=== PATIENT | male | born 1990 | race Hispanic/Latino ===

== ENCOUNTER 2019-06-04 15:39 | Emergency (ER) | payer OTHER ==
[2019-06-04] MEDS ORDERED: TETANUS & DIPHTHERIA TOX,ADULT 0.5 ML VIAL ONE (15:50)
[2019-06-04] MEDS ORDERED: ONDANSETRON 4 MG/2 ML VIAL ONE (15:50)
[2019-06-04] MEDS ORDERED: MORPHINE 4 MG/ML SYR ONE ×2 (15:50→16:12)
[2019-06-04] MEDS ORDERED: NA CHLORIDE 0.9% 1,000 ML ONE (15:51)
[2019-06-04] MEDS ORDERED: CEFAZOLIN/SWI 1gm 1 GM/10 ML SYR ONE (15:51)
--- NOTE | 2019-06-04 15:58 | ER ---
Nurse's Notes [facility] Name: Chi Mullins Age: 28 yrs Sex: Male : 1990 Arrival Date: 06/04/2019 Time: 15:43 Bed 24 Private MD: Diagnosis: Complete traumatic amputation of left foot, level unspecified Presentation: 06/04 15:44 Presenting complaint: [facility] and he was sv trying to save it and it went over his right foot. Pt has a belt wrapped around his right leg, pt drove from [employer]. Transition of care: patient was not received from another setting of care. Complicating Factors: There are no complicating factors for this patient. Onset of symptoms was June 04, 2019. Risk Assessment: Do you want to hurt yourself or someone else? Patient reports no desire to harm self or others. Care prior to arrival: None. 15:44 Method Of Arrival: Wheelchair sv 15:44 Acuity: GEOFF 2 sv 15:52 Trauma event details: Injury occurred in the [facility], Injury occurred: at sv home. Injury occurred: June 04, 2019. 16:28 Initial Sepsis Screen: Does the patient meet any 2 criteria? No. Patient's initial mg2 sepsis screen is negative. Does the patient have a suspected source of infection? No. Patient's initial sepsis screen is negative. 16:29 Mechanism of Injury: Crush injury from director emergency. mg2 Trauma Activation: Alert Physician: ED Physician; Name: Dr Light; Notified At: 15:41; Arrived At: 15:43 Physician: General Surgeon; Name: ; Notified At: 15:41; Arrived At: Physician: Radiology; Name: ; Notified At: 15:41; Arrived At: Physician: Respiratory; Name: ; Notified At: 15:41; Arrived At: Physician: Lab; Name: ; Notified At: 15:41; Arrived At: Historical: - Allergies: 15:47 No Known Allergies; sv - PMHx: 15:47 None; sv - PSHx: 15:47 None; sv - Immunization history:: Last tetanus immunization: unknown. - Social history:: Smoking status: unknown. - Ebola Screening: : No symptoms or risks identified at this time. Screenin:22 Abuse screen: Denies threats or abuse. Denies injuries from another. Nutritional mg2 screening: No deficits noted. Tuberculosis screening: No symptoms or risk factors identified. 16:55 Fall Risk IV access (20 points). mg2 Primary Survey: 16:19 Uncontrolled hemorrhage is observed, assessment has been re-ordered to <C> ABC. A: The mg2 patient is alert. Airway: patent. Breathing/Chest: Respiratory pattern: regular, Respiratory effort: spontaneous, unlabored, Breath sounds: clear. Circulation: Skin color: pink. Disability Alert. Exposure/Environment: All clothing and personal items were removed. Forensic evidence collection is not deemed to be indicated at this time. Items placed in patient belonging bag. There is evidence of uncontrolled external hemorrhage. Provider notified immediately. Methods to control bleeding applied. 16:55 Reassessment Airway Airway Patent Breathing/Chest Respiratory pattern Regular mg2 Respiratory effort Spontaneous Unlabored Breath sounds Clear Chest inspection Symmetrical Circulation Color Crossnore Disability Alert. Secondary Survey: 16:21 HEENT: No deficits noted. Gastrointestinal: No deficits noted. : No deficits noted. mg2 Musculoskeletal: Circulation, motion, and sensation intact. Capillary refill < 3 seconds. Injury Description: Crush injury sustained to lateral side of left foot is macerated was sustained 30-60 minutes ago. Assessment: 15:41 Reassessment: Trauma alert called. sv 16:24 General: Appears in no apparent distress. comfortable, Behavior is calm, cooperative. mg2 Pain: Complains of pain in lateral side of left foot Pain does not radiate. Pain currently is 4 out of 10 on a pain scale. Quality of pain is described as aching, Pain began suddenly. Neuro: Level of Consciousness is awake, alert, obeys commands, Oriented to person, place, time, situation. Cardiovascular: Capillary refill < 3 seconds Patient's skin is warm and dry. Respiratory: Airway is patent Respiratory effort is even, unlabored, Respiratory pattern is regular, symmetrical. GI: No signs and/or symptoms were reported involving the gastrointestinal system. : No signs and/or symptoms were reported regarding the genitourinary system. EENT: No signs and/or symptoms were reported regarding the EENT system. Derm: Skin not intact Skin is pink, warm \T\ dry. normal. Musculoskeletal: Circulation, motion, and sensation intact. Capillary refill < 3 seconds. Injury Description: Crush injury sustained to lateral side of left foot. 16:54 Reassessment: report called to Shahida Shah RN of [facility] ED. mg2 16:56 Injury Description: Crush injury. mg2 Vital Signs: 15:47 BP 137 / 93; Pulse 127; Resp 16; Temp 99.2(O); Pulse Ox 97% ; Weight 81.65 kg; Height 5 sv ft. 6 in. (167.64 cm); Pain 10/10; 16:28 BP 123 / 86; Pulse 96; Resp 18; Pulse Ox 100% on R/A; mg2 16:57 BP 134 / 89; Pulse 98; Resp 18; Pulse Ox 100% on R/A; mg2 17:04 BP 134 / 93; Pulse 97; Resp 18; Pulse Ox 100% on R/A; mg2 17:33 BP 133 / 93; Pulse 98; Resp 18; Temp 99.8(O); Pulse Ox 100% on R/A; Pain 5/10; mg2 15:47 Body Mass Index 29.05 (81.65 kg, 167.64 cm) sv Josué Coma Score: 15:50 Eye Response: spontaneous(4). Verbal Response: oriented(5). Motor Response: obeys sv commands(6). Total: 15. 16:28 Eye Response: spontaneous(4). Verbal Response: oriented(5). Motor Response: obeys mg2 commands(6). Total: 15. 17:33 Eye Response: spontaneous(4). Verbal Response: oriented(5). Motor Response: obeys mg2 commands(6). Total: 15. Trauma Score (Adult): 15:50 Eye Response: spontaneous(1); Verbal Response: oriented(1); Motor Response: obeys sv commands(2); Systolic BP: > 89 mm Hg(4); Respiratory Rate: 10 to 29 per min(4); Josué Score: 15; Trauma Score: 12 16:28 Eye Response: spontaneous(1); Verbal Response: oriented(1); Motor Response: obeys mg2 commands(2); Systolic BP: > 89 mm Hg(4); Respiratory Rate: 10 to 29 per min(4); Josué Score: 15; Trauma Score: 12 17:33 Eye Response: spontaneous(1); Verbal Response: oriented(1); Motor Response: obeys mg2 commands(2); Systolic BP: > 89 mm Hg(4); Respiratory Rate: 10 to 29 per min(4); [place] Score: 15; Trauma Score: 12 ED Course: 15:43 Patient arrived in ED. as 15:46 Triage completed. sv 15:48 Blas Light MD is Attending Physician. kdr 15:48 Arm band placed on. sv 15:55 Sergio Medina RN is Primary Nurse. mg2 16:00 Inserted saline lock: 18 gauge in right antecubital area, using aseptic technique. mg2 Blood collected. Wound care: to crushed injury located on lateral side of left foot was cleaned with debrided using irrigated with normal saline, dressed with 4X4s, Pneumatic tourniquet applied. Thermoregulation: warm blanket given to patient. 16:10 Foot Left 3 View XRAY In Process Unspecified. EDMS 16:22 No provider procedures requiring assistance completed. Patient maintains SpO2 mg2 saturation greater than 95% on room air. 16:24 Patient has correct armband on for positive identification. mg2 17:34 Patient transferred, IV remains in place. mg2 17:35 Patient transferred, IV remains in place. mg2 Administered Medications: 15:56 Drug: Zofran 4 mg Route: IVP; Site: right antecubital; mg2 17:02 Follow up: Response: No adverse reaction; Marked relief of symptoms mg2 15:56 Drug: Tetanus-Diphtheria Toxoid Adult 0.5 ml {Wind Turbine Service Technician: LEHR. Exp: mg2 11/16/2020. Lot #: [id number]. } Route: IM; Site: right deltoid; 16:59 Follow up: Response: No adverse reaction mg2 15:57 Drug: morphine 4 mg Route: IVP; Site: right antecubital; mg2 17:03 Follow up: Response: No adverse reaction; Marked relief of symptoms mg2 15:57 Drug: NS 0.9% 1000 ml Route: IV; Rate: 1 bolus; Site: right antecubital; mg2 17:03 Follow up: Response: No adverse reaction; IV Status: Completed infusion; IV Intake: mg2 1000ml 15:58 Drug: Ancef 1 grams Route: IVPB; Site: right antecubital; mg2 17:03 Follow up: Response: No adverse reaction; IV Status: Completed infusion mg2 16:03 CANCELLED (Duplicate Order): Tetanus-Diphtheria Toxoid Adult 0.5 ml IM once mg2 16:21 Drug: morphine 4 mg Route: IVP; Site: right antecubital; mg2 16:59 Follow up: Response: No adverse reaction; Marked relief of symptoms mg2 16:39 Drug: Gentamicin 1 mg/kg Route: IVPB; Infused Over: 30 mins; Site: right antecubital; mg2 17:31 Follow up: Response: No adverse reaction; IV Status: Completed infusion; IV Intake: mg2 100ml 16:39 Drug: fentaNYL (PF) 50 mcg Route: IVP; Site: right antecubital; mg2 16:58 Follow up: Response: No adverse reaction; Marked relief of symptoms mg2 17:32 Drug: fentaNYL (PF) 50 mcg Route: IVP; Site: right antecubital; mg2 17:33 Follow up: Response: No adverse reaction; administered prior to transfer mg2 Intake: 15:50 PO: 0ml; Total: 0ml. sv 17:03 IV: 1000ml; Total: 1000ml. mg2 17:31 IV: 100ml; Total: 1100ml. mg2 Output: 15:50 Urine: 0ml; Total: 0ml. sv Outcome: 15:57 ER care complete, transfer ordered by . kdr 17:35 Transferred by ground EMS to [facility], Transfer form completed. mg2 17:35 Condition: stable 17:35 Instructed on the need for transfer, Demonstrated understanding of instructions. 17:35 Patient's length of stay was not longer than 2 hours. 17:36 Patient left the ED. mg2 Signatures: Dispatcher [employer] EDN[facility] Mary Alice Singh RN RN sv Blas Light MD MD kdr Martinez, Amelia as Gardose, Michele, RN RN mg2 Corrections: (The following items were deleted from the chart) 15:50 15:47 BP 137 / 93; Pulse 127bpm; Resp 16bpm; Pulse Ox 97%; 81.65 kg; Height 5 ft. 6 sv in.; BMI: 29.0; Pain 10/10; sv
--- NOTE | 2019-06-04 15:59 | EDPHYS ---
Physician Documentation [facility] Name: Chi Mullins Age: 28 yrs Sex: Male : 1990 Arrival Date: 06/04/2019 Time: 15:43 Bed 24 Private MD: ED Physician Blas Light HPI: 06/04 15:58 This 28 yrs old Male presents to ER via Wheelchair with complaints of kdr Laceration To Foot. 15:58 The patient has a laceration related to: The patient was trying to keep a more from kdr going into the water on a hill and his foot slipped under the mower that was running. He now c/o pain and bleeding to the distal lateral portion of the left foot occurred yard. The laceration(s) is(are) located on the lateral aspect of left toes and lateral side of left foot. Onset: The symptoms/episode began/occurred suddenly, just prior to arrival. Associated signs and symptoms: The patient has no apparent associated signs or symptoms. The patient has not experienced similar symptoms in the past. The patient has not recently seen a physician. Historical: - Allergies: 15:47 No Known Allergies; sv - PMHx: 15:47 None; sv - PSHx: 15:47 None; sv - Immunization history:: Last tetanus immunization: unknown. - Social history:: Smoking status: unknown. - Ebola Screening: : No symptoms or risks identified at this time. ROS: 15:58 Constitutional: Negative for fever, chills, and weight loss, Eyes: Negative for injury, kdr pain, redness, and discharge, ENT: Negative for injury, pain, and discharge, Neck: Negative for injury, pain, and swelling, Cardiovascular: Negative for chest pain, palpitations, and edema, Respiratory: Negative for shortness of breath, cough, wheezing, and pleuritic chest pain, Abdomen/GI: Negative for abdominal pain, nausea, vomiting, diarrhea, and constipation, Back: Negative for injury and pain, : Negative for injury, bleeding, discharge, and swelling, Skin: Negative for injury, rash, and discoloration, Neuro: Negative for headache, weakness, numbness, tingling, and seizure activity. Psych: Negative for depression, anxiety, suicide ideation, homicidal ideation, and hallucinations, Allergy/Immunology: Negative for hives, rash, and allergies, Endocrine: Negative for neck swelling, polydipsia, polyuria, polyphagia, and marked weight changes, Hematologic/Lymphatic: Negative for swollen nodes, abnormal bleeding, and unusual bruising. 15:58 MS/extremity: Positive for laceration, pain, swelling, tenderness, of the lateral aspect of left toes and lateral side of left foot. Exam: 15:58 Constitutional: This is a well developed, well nourished patient who is awake, alert, kdr and in mild distress. Skin: Warm, dry with normal turgor. Normal color with no rashes, no lesions, and no evidence of cellulitis. Neuro: Awake and alert, GCS 15, oriented to person, place, time, and situation. Cranial nerves II-XII grossly intact. Motor strength 5/5 in all extremities. Sensory grossly intact. Cerebellar exam normal. Normal gait. 15:58 Musculoskeletal/extremity: complete amputation to the distal left foot including the 4th and 5th digit. Vital Signs: 15:47 BP 137 / 93; Pulse 127; Resp 16; Temp 99.2(O); Pulse Ox 97% ; Weight 81.65 kg; Height 5 sv ft. 6 in. (167.64 cm); Pain 10/10; 16:28 BP 123 / 86; Pulse 96; Resp 18; Pulse Ox 100% on R/A; mg2 16:57 BP 134 / 89; Pulse 98; Resp 18; Pulse Ox 100% on R/A; mg2 17:04 BP 134 / 93; Pulse 97; Resp 18; Pulse Ox 100% on R/A; mg2 17:33 BP 133 / 93; Pulse 98; Resp 18; Temp 99.8(O); Pulse Ox 100% on R/A; Pain 5/10; mg2 15:47 Body Mass Index 29.05 (81.65 kg, 167.64 cm) sv Josué Coma Score: 15:50 Eye Response: spontaneous(4). Verbal Response: oriented(5). Motor Response: obeys sv commands(6). Total: 15. 16:28 Eye Response: spontaneous(4). Verbal Response: oriented(5). Motor Response: obeys mg2 commands(6). Total: 15. 17:33 Eye Response: spontaneous(4). Verbal Response: oriented(5). Motor Response: obeys mg2 commands(6). Total: 15. Trauma Score (Adult): 15:50 Eye Response: spontaneous(1); Verbal Response: oriented(1); Motor Response: obeys sv commands(2); Systolic BP: > 89 mm Hg(4); Respiratory Rate: 10 to 29 per min(4); Josué Score: 15; Trauma Score: 12 16:28 Eye Response: spontaneous(1); Verbal Response: oriented(1); Motor Response: obeys mg2 commands(2); Systolic BP: > 89 mm Hg(4); Respiratory Rate: 10 to 29 per min(4); [place]ont Score: 15; Trauma Score: 12 17:33 Eye Response: spontaneous(1); Verbal Response: oriented(1); Motor Response: obeys mg2 commands(2); Systolic BP: > 89 mm Hg(4); Respiratory Rate: 10 to 29 per min(4); Dupont Score: 15; Trauma Score: 12 MDM: 15:57 Patient medically screened. kdr 15:58 Data reviewed: vital signs, nurses notes, radiologic studies. Counseling: I had a kdr detailed discussion with the patient and/or guardian regarding: the historical points, exam findings, and any diagnostic results supporting the discharge/admit diagnosis, radiology results, the need for outpatient follow up. 06/04 15:50 Order name: CBC with Diff; Complete Time: 17:42 kdr 06/04 15:50 Order name: Chem 7; Complete Time: 17:42 kdr 06/04 15:50 Order name: PT-INR; Complete Time: 17:42 kdr 06/04 15:50 Order name: Foot Left 3 View XRAY; Complete Time: 17:42 kdr Administered Medications: 15:56 Drug: Zofran 4 mg Route: IVP; Site: right antecubital; mg2 17:02 Follow up: Response: No adverse reaction; Marked relief of symptoms mg2 15:56 Drug: Tetanus-Diphtheria Toxoid Adult 0.5 ml {Tin Roofer: [employer]. Exp: mg2 11/16/2020. Lot #: [id number]. } Route: IM; Site: right deltoid; 16:59 Follow up: Response: No adverse reaction mg2 15:57 Drug: morphine 4 mg Route: IVP; Site: right antecubital; mg2 17:03 Follow up: Response: No adverse reaction; Marked relief of symptoms mg2 15:57 Drug: NS 0.9% 1000 ml Route: IV; Rate: 1 bolus; Site: right antecubital; mg2 17:03 Follow up: Response: No adverse reaction; IV Status: Completed infusion; IV Intake: mg2 1000ml 15:58 Drug: Ancef 1 grams Route: IVPB; Site: right antecubital; mg2 17:03 Follow up: Response: No adverse reaction; IV Status: Completed infusion mg2 16:03 CANCELLED (Duplicate Order): Tetanus-Diphtheria Toxoid Adult 0.5 ml IM once mg2 16:21 Drug: morphine 4 mg Route: IVP; Site: right antecubital; mg2 16:59 Follow up: Response: No adverse reaction; Marked relief of symptoms mg2 16:39 Drug: Gentamicin 1 mg/kg Route: IVPB; Infused Over: 30 mins; Site: right antecubital; mg2 17:31 Follow up: Response: No adverse reaction; IV Status: Completed infusion; IV Intake: mg2 100ml 16:39 Drug: fentaNYL (PF) 50 mcg Route: IVP; Site: right antecubital; mg2 16:58 Follow up: Response: No adverse reaction; Marked relief of symptoms mg2 17:32 Drug: fentaNYL (PF) 50 mcg Route: IVP; Site: right antecubital; mg2 17:33 Follow up: Response: No adverse reaction; administered prior to transfer mg2 Disposition: 06/04/19 15:57 Transfer ordered to [facility]. Diagnosis is Complete traumatic amputation of left foot, level unspecified. - Reason for transfer: Higher level of care. - Accepting physician is [place] . - Condition is Fair. - Problem is new. - Symptoms have improved. Signatures: Dispatcher [employer] Mary Alice Harrell RN RN Blas Light MD MD kdr Sergio Medina RN RN mg2 Corrections: (The following items were deleted from the chart) 16:03 15:56 Tetanus-Diphtheria Toxoid Adult 0.5 ml IM once ordered. kdr mg2 17:36 15:57 06/04/2019 15:57 Transfer ordered to [facility]. mg2 Diagnosis is Complete traumatic amputation of left foot, level unspecified. Reason for transfer: Higher level of care. Accepting physician is [place] . Condition is Fair. Problem is new. Symptoms have improved. kdr
[2019-06-04 16:07] LABS: Absolute Lymphocytes (CBC) 3.9 K/uL (0.7-4.9); Basophils % 0.8 % (0-1.3); Hematocrit 46.8 % (39.6-49.0); MPV 9.2 fL (7.6-11.3); RBC Red Blood Cell Count 5.38 M/uL (4.33-5.43)
[2019-06-04 16:10] LABS: Protime INR 1.06
[2019-06-04 16:21] LABS: Potassium 3.4 mmol/L (3.5-5.1)
[2019-06-04] MEDS ORDERED: FENTANYL CITR 100 MCG/2 ML ONE (16:36)
[2019-06-04] MEDS ORDERED: GENTAMICIN 80 MG/100 ML BAG 80 MG/100 ML BAG IV ONE (16:36)
--- NOTE | 2019-06-04 16:39 | RAD REPORT ---
EXAM DESCRIPTION: RAD - Foot Left 3 View - 06/04/2019 4:09 pm CLINICAL HISTORY: Foot pain, lawnmower injury COMPARISON: None. FINDINGS: There is traumatic amputation of the fifth toe and distal fifth metatarsal midshaft level. There is posttraumatic amputation of the distal and middle phalanges of the fourth toe. Most of the proximal phalanx has been amputated as well. The base of the fourth proximal phalanx is still in plac e. There are several small bone fragments in the soft tissues. Soft tissue wound is present. Foreign body is not suspected. The first- third toes and metatarsals are intact. No tarsal bone abnormality. Calcaneus is normal. IMPRESSION: Traumatic amputation of the fifth toe and distal fifth metatarsal. Traumatic amputation of the middle and distal phalanges fourth toe and most of the fourth toe proxima l phalanx. Large soft tissue wound. Bone fragments are present without foreign body suspected.
[2019-06-04 19:13] VITALS: O2SAT 100
[2019-06-04 19:17] VITALS: BP 133/93; TEMP 99.8
== END 2019-06-04 17:36 | disposition short-term general hospital (02) ==
LOC: ER 15:39
DX: S98.212A Complete traumatic amputation of two or more left lesser toes, initial encounter (principal); W31.89XA Contact with other specified machinery, initial encounter; Y93.89 Activity, other specified; Y92.9 Unspecified place or not applicable; Z23 Encounter for immunization
CPT/HCPCS: 96365; 96368; 85025; 80048; 36415; 85610; 73630; 90471; 90714; 96375; 99285; J3010; J0690; J7030; J1580; J2405